=== PATIENT | female | born 1950 | race Two or more races ===

== ENCOUNTER 2018-11-01 13:25 | Emergency (ER) | payer MEDICARE ==
[~2018-11-01] VITALS: Ht 162.6 cm; Wt 71.2 kg
--- NOTE | 2018-11-01 13:49 | Emergency Room Report ---
History of Present Illness General Chief Complaint: Pain Source: Patient (MariluBambi WILLIS) Present Illness HPI Patient present with note from doctor's office requesting evaluation of both lower extremities with ultrasound for evaluation of blood clot Patient had a fall in a hospital in [place] has been in [place] and was having some shortness of breath sensation CT angios is reported to have been done however as the patient is having another flight today Patient was sent in for ultrasound to rule out DVT Denies any chest pain at this time She reports that she has had the same shortness of breath sensation over the past week Denies any vomiting or diarrhea denies any fevers or chills (Bambi Michel DO) Allergies: Coded Allergies: AMOXICILLIN (Verified Allergy, Unknown, 11/01/18) Patient History Past Medical History: see triage record Pertinent Family History: none Reviewed Nursing Documentation: PMH: Agreed; PSxH: Agreed (Bambi Michel DO) Nursing Documentation-PMH Hx Cardiac Problems: Yes - high cholesterol (Bambi Michel DO) Review of Systems All Other Systems: negative except mentioned in HPI (Bambi Michel DO) Physical Exam Vital Signs Date Time Temp Pulse Resp B/P (MAP) Pulse Ox O2 Delivery O2 Flow Rate FiO2 11/01/18 13:30 98.2 63 13 100 Room Air Sp02 EP Interpretation: reviewed, normal General Appearance: well appearing, no apparent distress Head: normocephalic, atraumatic Eyes: bilateral eye PERRL, bilateral eye EOMI ENT: normal pharynx, no angioedema Neck: supple Respiratory: lungs clear, no respiratory distress, no retraction, no accessory muscle use Cardiovascular #1: regular rate, rhythm Gastrointestinal: non tender, soft Musculoskeletal: normal inspection Neurologic: alert, oriented x3, responsive Skin: no rash, other - varicose veins bilaterally both lower extremity, no obvious pitting edema, neurovascularly intact Lymphatic: no adenopathy (Bambi Michel DO) Medical Decision Making Diagnostic Impression: Primary Impression: Dyspnea Qualified Codes: R06.00 - Dyspnea, unspecified ER Course clinic contacted [phone] (Bambi Michel DO) ER Course Please see above. Patient to ultrasound @ 16:00. Ultrasound without DVT. Patient's daughter shows labs with minimal thrombocytopenia. Requesting whether the patient should take a blood thinner or aspirin. Advised not to. Requesting explanation of dyspnea. Patient had a CT angiogram yesterday which was negative. I discussed that I could not answer why she feels shortness of breath. Lungs clear without bronchospasm. Discussed use of anti-thrombus stockings flight. She is flying to [place] to attend of her parents . Patient stable for outpatient observation and treatment. (Phong Foster MD) Last Vital Signs Date Time Temp Pulse Resp B/P (MAP) Pulse Ox O2 Delivery O2 Flow Rate FiO2 11/01/18 13:30 98.2 63 13 100 Room Air (Bambi Michel DO) Last Vital Signs Date Time Temp Pulse Resp B/P (MAP) Pulse Ox O2 Delivery O2 Flow Rate FiO2 11/01/18 17:15 98.2 74 16 136/78 100 11/01/18 14:02 Room Air Status: unchanged (Phong Foster MD) Disposition: HOME, SELF-CARE Condition: Stable Scripts Comp.stocking,Thigh,Short,Lrg (T.E.D. ANTI-EMBOLISM STOCKING) 1 Each Each EACH , #1 Prov: Phong Foster MD 11/01/18 Bambi Michel DO November 01, 2018 13:49 Phong Foster MD November 01, 2018 16:06
[2018-11-01 14:02] VITALS: BP 125/70
--- NOTE | 2018-11-01 16:59 | Diagnostic Imaging Report ---
EXAM: US Duplex Bilateral Lower Extremity Veins CLINICAL HISTORY: CALLYLL TECHNIQUE: Real-time duplex ultrasound scan of the bilateral lower extremity veins integrating B-mode two-dimensional vascular structure, Doppler spectral analysis, color flow Doppler imaging and compression. COMPARISON: No relevant prior studies available. FINDINGS: Right deep veins: Unremarkable. No DVT in the right common femoral, femoral, proximal deep femoral or popliteal veins. The veins demonstrate normal color flow, are normally compressible, with normal phasic flow and/or augmentation response. Right superficial veins: Unremarkable. No thrombus in the visualized right great saphenous vein. Left deep veins: Unremarkable. No DVT in the left common femoral, femoral, proximal deep femoral or popliteal veins. The veins demonstrate normal color flow, are normally compressible, with normal phasic flow and/or augmentation response. Left superficial veins: Unremarkable. No thrombus in the visualized left great saphenous vein. Soft tissues: Left Godinez's cyst measuring 3.3 x 4.2 x 1.3 cm IMPRESSION: No DVT demonstrated.
[2018-11-01] MEDS ORDERED: T.E.D. ANTI-EM1 EA10 MC (17:06)
[2018-11-01 17:15] VITALS: BP 136/78
== END 2018-11-01 17:15 | disposition home or self-care (01) ==
LOC: EMR 14:00
DX: R06.00 Dyspnea, unspecified (principal); E78.00 Pure hypercholesterolemia, unspecified; Z88.1 Allergy status to other antibiotic agents; R60.0 Localized edema
CPT/HCPCS: 93005; 93970; 99283